=== PATIENT | male | born 1990 | race Caucasian/White ===

== ENCOUNTER 2020-07-14 08:15 | Emergency (ER) | payer SELFPAY ==
[~2020-07-14] VITALS: Ht 190.5 cm; Wt 73.6 kg
[2020-07-14 08:21] VITALS: BP 146/70; TEMP 98.2
[2020-07-14 09:06] LABS: BASO % 0.4 % (0.0-2.0); EOS # 0.1 (0.0-0.7); EOS % 1.3 % (0-4.0); GRAN # 3.3 (1.4-6.5); GRAN % 70.9 % (42.2-75.2); LYMPH # 0.9 (1.2-3.4); LYMPH % 18.9 % (20.0-51.0); MEAN CELL VOLUME 88 fl (80.0-100.0); MEAN CORPUSCULAR HEMOGLOBIN 31 pg (27.0-31.0); MEAN CORPUSCULAR HGB CONC 36 g/dl (33.0-37.0); MEAN PLATELET VOLUME 9.5 fl (7.4-10.4); MONO # 0.4 (0.1-0.6); MONO % 8.3 % (1.7-9.3); PLATELET COUNT 212 K/mm3 (130-400); RED BLOOD COUNT 5.09 M/mm3 (4.20-5.60); REDCELL DISTRIBUTION WIDTH-CV 11.7 % (11.5-14.5)
[2020-07-14 09:26] LABS: ALCOHOL(ethanol),MEDICAL < 10 mg/dL; ANION GAP 6 mmol/L (7-16); BLOOD UREA NITROGEN 15 mg/dL (9-20); CALCIUM 9.5 mg/dL (8.4-10.2); CARBON DIOXIDE 26 mmol/L (22-30); CHLORIDE 102 mmol/L (98-107); CREATININE, serum 0.94 (0.66-1.25); GLUCOSE 104 mg/dL (74-106); SODIUM 135 mmol/L (137-145)
[2020-07-14 09:40] LABS: TRICYCLIC ANTIDEPRESS URINE NEGATIVE
[2020-07-14 11:16] VITALS: PULSE 85
== END 2020-07-14 11:10 | disposition home or self-care (01) ==
LOC: COL.ER 08:15
PROVIDERS: Emergency Medicine
DX: F41.9 Anxiety disorder, unspecified (principal); Z72.820 Sleep deprivation; R42 Dizziness and giddiness; R19.7 Diarrhea, unspecified
CPT/HCPCS: J1790; J2060; J7030